=== PATIENT | female | born 1990 | race Two or more races ===

== ENCOUNTER 2023-02-12 19:30 | Inpatient (IN) | payer BC ==
[~2023-02-12] VITALS: Ht 154.9 cm; Wt 56.7 kg
[2023-02-12] MEDS ORDERED: ONDANSETRON HCL 4MG/2ML INJ IV STA (19:48)
[2023-02-12] MEDS ORDERED: SODIUM CHLORIDE 0.9% 1,000 ML IV ONE (20:00)
[2023-02-12 21:11] LABS: BASOPHILS % 0.5 % (0.0-2.0); EOSINOPHILS % 1.9 % (0.0-5.0); HEMATOCRIT. 39.4 % (36.0-48.0); HEMOGLOBIN. 13.3 g/dL (12.0-16.0); LYMPHOCYTES % 18.6 % (20.0-50.0); MEAN CORPUSCULAR HEMOGLOBIN 30.4 pg (28.0-32.0); MEAN CORPUSCULAR VOLUME 90.5 fL (81.0-99.0); MEAN PLATELET VOLUME 8.2 fl (7.4-10.4); MONOCYTES % 6.1 % (2.0-8.0); NEUTROPHILS % 72.9 % (40.0-76.0); PLATELET 253 x1000/uL (130-400); RED BLOOD CELL COUNT 4.36 mill/uL (4.2-5.4); RED CELL DISTRIBUTION WIDTH 12.8 % (11.6-14.6)
[2023-02-12 21:15] LABS: CHLORIDE 107 mEq/L (98-107)
[2023-02-12 21:18] LABS: HCG SCREEN NEGATIVE
[2023-02-12 21:39] LABS: CREATINE KINASE 120 IU/L (26-192); ETHANOL BLOOD < 10 mg/dL
[2023-02-12 22:47] LABS: CLARITY URINE CLEAR (CLEAR); COLOR URINE YELLOW (YELLOW); KETONES URINE 2+ (NEGATIVE); LEUKOCYTE ESTERASE URINE NEGATIVE (NEGATIVE); NITRITE URINE NEGATIVE (NEGATIVE); OCCULT BLOOD URINE NEGATIVE (NEGATIVE); PROTEIN URINE NEGATIVE (NEGATIVE); SPECIFIC GRAVITY URINE 1.006 (1.005-1.030); UROBILINOGEN URINE 0.2 E.U./dL (0.2-1.0)
[2023-02-12 23:01] LABS: *AMPHETAMINES SCREEN URINE NEGATIVE (NEGATIVE); *BARBITURATES SCREEN URINE NEGATIVE (NEGATIVE); *BENZODIAZEPINES SCREEN URINE NEGATIVE (NEGATIVE); *COCAINE SCREEN URINE NEGATIVE (NEGATIVE); METHADONE URINE SCREEN NEGATIVE (NEGATIVE); OPIATES URINE SCREEN NEGATIVE (NEGATIVE); PHENCYCLIDINE URINE SCREEN NEGATIVE (NEGATIVE)
[2023-02-12 23:10] LABS: CANNABINOID URINE SCREEN PRESUMTIVE POSITIVE (NEGATIVE)
[2023-02-13] MEDS ORDERED: IOHEXOL-350 100 ML BOTTLE ONE (00:05)
[2023-02-13] MEDS ORDERED: ACETAMINOPHEN 325MG TABLET PO PRN ×2 (04:45→14:00)
[2023-02-13 12:00] VITALS: BP 108/57
[2023-02-13 12:30] VITALS: BP 108/57
[2023-02-13] MEDS ORDERED: ONDANSETRON HCL 4MG/2ML INJ IV PRN (14:00)
[2023-02-13] MEDS ORDERED: HYDROCODONE/ACETAMINOPHEN 5/325MG TABLET PO PRN (14:00)
[2023-02-13] MEDS ORDERED: NALOXONE HCL 0.4MG/ML VIAL IV PRN (14:00)
[2023-02-13 16:00] VITALS: BP 98/55
[2023-02-14] VITALS: BP 95/45
[2023-02-14 07:45] LABS: BASOPHILS % 1.1 % (0.0-2.0); EOSINOPHILS % 7.6 % (0.0-5.0); HEMATOCRIT. 37.6 % (36.0-48.0); LYMPHOCYTES % 35.3 % (20.0-50.0); MEAN CORPUSCULAR HEMOGLOBIN 30.8 pg (28.0-32.0); MEAN CORPUSCULAR VOLUME 89.1 fL (81.0-99.0); MEAN PLATELET VOLUME 9.1 fl (7.4-10.4); PLATELET 236 x1000/uL (130-400); RED BLOOD CELL COUNT 4.22 mill/uL (4.2-5.4); RED CELL DISTRIBUTION WIDTH 12.6 % (11.6-14.6)
[2023-02-14 08:35] LABS: CHLORIDE 111 mEq/L (98-107)
== END 2023-02-14 12:50 | disposition home or self-care (01) | DRG 914 ==
LOC: ER 21:05 → MICUSO 23:25 → 6EST 02-13 12:30
PROVIDERS: ADMIT Internal Medicine; ATTEND Internal Medicine
DX: S09.90XA Unspecified injury of head, initial encounter (principal); F12.90 Cannabis use, unspecified, uncomplicated; Z20.822 Contact with and (suspected) exposure to COVID-19; X58.XXXA Exposure to other specified factors, initial encounter; Y93.89 Activity, other specified; Y92.89 Other specified places as the place of occurrence of the external cause; Y99.8 Other external cause status
CPT/HCPCS: 36415; 70496; 70498; 70551; 71045; 73502; 80048; 80053; 80305; 80307; 80320; 80329; 81003; 82140; 82550; 82962; 84443; 84703; 85025; 86850; 86900; 87426; 93005; 97162; 99291; C9803; J7030; Q9967; G0480